=== PATIENT | female | born 1945 | race Caucasian/White ===

== ENCOUNTER 2021-03-19 19:52 | Emergency (ER) | payer BC, MEDICARE ==
--- NOTE | 2021-03-19 21:03 | EDM.PDOC ---
ED HPI GENERAL MEDICAL PROBLEM - General Chief Complaint: Bite:Animal, Insect Stated Complaint: BEE STING Time Seen by Provider: 03/19/21 20:18 Source of Information: Reports: Patient History Limitations: Reports: No Limitations - History of Present Illness INITIAL COMMENTS - FREE TEXT/NARRATIVE: Anitra is a 76-year-old female presenting to the ED for evaluation of a bee sting to her lower lip causing some scratchiness of the throat, hives on the forearms, itch, and nausea. Patient was eating food and there was a bee or yellow jacket on her plate. She did not see it and brought the food to her mouth resulting in her getting stung by the insect. She immediately started having swelling and pain at the lip and started feeling scratchiness in the throat. She denies any shortness of breath or difficulty swallowing. She also started getting some swelling in the hands and feet as well as bilateral forearms. She has having some pruritus of the forearms. She has not taken anything prior to arrival but did put baking soda on her lip which has reduced some of the swelling. She denies a previous difficulty with stings. She is on a number of medications for her heart including Eliquis for chronic atrial fibrillation. - Related Data Allergies Allergy/AdvReac Type Severity Reaction Status Date / Time No Known Allergies Allergy Verified 03/19/21 20:03 Home Meds: Home Meds Apixaban [Eliquis] 5 mg PO BID 03/19/21 [History] Diltiazem [Cardizem CD] 120 mg PO DAILY 03/19/21 [History] Hyalur Ac/Chond Sul/Colg II/AA [Hyaluronic Acid 40 MG] 40 mg PO DAILY 03/19/21 [History] Multivitamin [Multi-Day Vitamins] 1 tab PO DAILY 03/19/21 [History] Propafenone [Rythmol] 150 mg PO Q8H 03/19/21 [History] Rosuvastatin [Crestor] 10 mg PO DAILY 03/19/21 [History] hydrOXYzine HCL [Atarax] 25 mg PO Q6H PRN #10 tab 03/19/21 [Rx] predniSONE [Prednisone] 40 mg PO ASDIRECTED PRN #2 tablet 03/19/21 [Rx] Past Medical History HEENT History: Reports: Impaired Vision Cardiovascular History: Reports: Afib, Other (See Below) Other Cardiovascular History: cardioversion 08/2018 Gastrointestinal History: Reports: None Genitourinary History: Reports: None, Other (See Below) Other Genitourinary History: bladder suspension 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: Musculoskeletal History: Reports: Other (See Below) Other Musculoskeletal History: osteopenia Neurological History: Reports: None Psychiatric History: Reports: None Endocrine/Metabolic History: Reports: None Hematologic History: Reports: None Immunologic History: Reports: None Oncologic (Cancer) History: Reports: Breast, Other (See Below) Other Oncologic History: lumpectomy, chemo and radiation left breast Dermatologic History: Reports: None - Infectious Disease History Infectious Disease History: Reports: None - Past Surgical History Cardiovascular Surgical History: Reports: Other (See Below) GI Surgical History: Reports: None Female Surgical History: Reports: Hysterectomy Musculoskeletal Surgical History: Reports: Other (See Below) Other Musculoskeletal Surgeries/Procedures:: torn achilles Oncologic Surgical History: Reports: Lumpectomy Social & Family History - Tobacco Use Tobacco Use Status *Q: Never Tobacco User Second Hand Smoke Exposure: No - Caffeine Use Caffeine Use: Reports: Coffee - Alcohol Use Days Per Week of Alcohol Use: 5 Number of Drinks Per Day: 1 Total Drinks Per Week: 5 - Recreational Drug Use Recreational Drug Use: No ED ROS GENERAL - Review of Systems Review Of Systems: See Below Constitutional: Reports: No Symptoms HEENT: Reports: Other (Swelling of the lip and scratchiness of the throat) Respiratory: Reports: No Symptoms Cardiovascular: Reports: No Symptoms Endocrine: Reports: No Symptoms GI/Abdominal: Reports: Nausea : Reports: No Symptoms Musculoskeletal: Reports: No Symptoms Skin: Reports: Pruritis (Generalized but mostly on the forearms), Urticaria (Bilateral forearms), Other (Swelling of the hands and feet) Neurological: Reports: No Symptoms Psychiatric: Reports: No Symptoms Hematologic/Lymphatic: Reports: No Symptoms Immunologic: Reports: No Symptoms ED EXAM, ANIMAL BITE - Physical Exam Exam: See Below Exam Limited By: No Limitations General Appearance: Alert, No Apparent Distress Eye Exam: Bilateral Eye: EOMI, PERRL Nose: Normal Inspection Throat/Mouth: Normal Oropharynx, Normal Voice, No Airway Compromise, Other (Swelling of the lower and upper lip. Normal tongue.) Head: Normocephalic, Facial Swelling (Mild swelling around the mouth) Neck: Normal Inspection, Supple, Non-Tender, Full Range of Motion. No: Lymphadenopathy (R), Lymphadenopathy (L) Respiratory/Chest: No Respiratory Distress, Lungs Clear, Normal Breath Sounds Cardiovascular: Normal Peripheral Pulses, Regular Rate, Rhythm, No Murmur GI/Abdominal: Normal Bowel Sounds, Soft, Non-Tender Extremities: Other (Mild swelling of the hands) Neurological: Alert, Oriented, Normal Cognition, No Motor/Sensory Deficits Skin Exam: Other (Urticaria in both forearms. Erythema of the palms.) Course - Vital Signs Last Recorded V/S: Last Vital Signs Temp 36.1 C 03/19/21 20:08 Pulse 71 03/19/21 21:54 Resp 16 03/19/21 20:08 BP 118/77 03/19/21 21:54 Pulse Ox 94 L 03/19/21 19:56 - Orders/Labs/Meds Meds: Medications Discontinued Medications Generic Name Dose Route Start Last Admin Trade Name Freq PRN Reason Stop Dose Admin Diphenhydramine HCl 25 mg 03/19/21 20:47 03/19/21 21:27 Diphenhydramine 25 Mg Cap PO 03/19/21 20:48 25 mg ONETIME ONE Administration Famotidine 20 mg 03/19/21 20:47 03/19/21 21:27 Famotidine 20 Mg Tab PO 03/19/21 20:48 20 mg ONETIME ONE Administration Hydroxyzine HCl 25 mg 03/19/21 20:47 03/19/21 21:38 Hydroxyzine Hcl 25 Mg Tab PO 03/19/21 20:48 25 mg ONETIME ONE Administration Methylprednisolone Sodium Succinate 125 mg 03/19/21 20:47 03/19/21 21:26 Methylprednisolone Sodium Succinate 125 Mg/2 Ml Sdv IM 03/19/21 20:48 125 mg ONETIME ONE Administration - Re-Assessments/Exams Free Text/Narrative Re-Assessment/Exam: 03/19/21 21:05 Anitra is having significant swelling and itching related to this bee sting. We treated her with Solu-Medrol 125 mg IM, diphenhydramine 25 mg p.o., Pepcid 20 mg p.o., and hydroxyzine 25 mg p.o. 03/19/21 21:57 patient has shown improvement after receiving the medications. We did discuss ways to manage to bee stings in the future. She is on several antiarrhythmic medications so I think an EpiPen may have some contraindications. Instead, I recommend that she takes with her prednisone 40 mg, Benadryl 50 mg, and Pepcid 40 mg to be taken at the onset of any symptoms. Today I will also give her a prescription for hydroxyzine that she may fill if she has continued itching. She still has significant swelling of the lower lip which will likely take several days to go down. Departure - Departure Time of Disposition: 22:18 Disposition: Home, Self-Care 01 Clinical Impression: Urticaria Bee sting reaction Qualifiers: Encounter type: initial encounter Injury intent: accidental or unintentional Qualified Code(s): T63.441A - Toxic effect of venom of bees, accidental (unintentional), initial encounter - Discharge Information Referrals: PCP,None [Primary Care Provider] - Forms: ED Department Discharge Care Plan Goals: In the future, I would recommend you carry Pepcid 40 mg (2 tablets), Benadryl 50 mg (2 capsules) and prednisone 40 mg (2 tablets) with you as an emergency allergy kit. This may be much better tolerated and less arrhythmia genic than carrying an EpiPen. Also remember that acetic acid (white vinegar) is a potent treatment for bee stings reducing the swelling and pain associated with the sting. Sepsis Event Note (ED) - Evaluation Sepsis Screening Result: No Definite Risk - Focused Exam Vital Signs: Vital Signs Temp Pulse Resp BP Pulse Ox 03/19/21 21:54 71 118/77 03/19/21 20:08 36.1 C 95 16 102/62 03/19/21 19:56 36.1 C 70 18 102/62 94 L - Problem List & Annotations (1) Bee sting reaction SNOMED Code(s): 436559196, 227231549, 238717971 Code(s): T63.441A - TOXIC EFFECT OF VENOM OF BEES, ACCIDENTAL, INIT Status: Acute Priority: Medium Current Visit: Yes Qualifiers: Encounter type: initial encounter Injury intent: accidental or unintentional Qualified Code(s): T63.441A - Toxic effect of venom of bees, accidental (unintentional), initial encounter (2) Urticaria SNOMED Code(s): 273496149 Code(s): L50.9 - URTICARIA, UNSPECIFIED Status: Acute Priority: Low Current Visit: Yes - Problem List Review Problem List Initiated/Reviewed/Updated: Yes
[2021-03-19] MEDS: methylPREDNISolone Sodium Succinate 125 MG/2 ML SDV IM ONE (21:26)
[2021-03-19] MEDS: diphenhydrAMINE 25 MG Cap PO ONE (21:27)
[2021-03-19] MEDS: Famotidine 20 MG Tab PO ONE (21:27)
[2021-03-19] MEDS: hydrOXYzine HCl 25 MG Tab PO ONE (21:38)
== END 2021-03-19 23:00 | disposition home or self-care (01) ==
LOC: JP.ED 19:52
DX: T63.441A Toxic effect of venom of bees, accidental (unintentional), initial encounter (principal); L50.9 Urticaria, unspecified; I48.91 Unspecified atrial fibrillation; Z79.01 Long term (current) use of anticoagulants; Z79.899 Other long term (current) drug therapy
CPT/HCPCS: 96372; 99282; A9270; J2930

== ENCOUNTER 2023-04-04 12:13 | Emergency (ER) | payer MEDICARE, BC ==
[2023-04-04] MEDS ORDERED: Lidocaine 1% with EPINEPHrine 1:100,000 50 ML MDV INJECT ONE (14:15)
== END 2023-04-04 15:42 | disposition home or self-care (01) ==
LOC: JP.ED 12:13
DX: S91.331A Puncture wound without foreign body, right foot, initial encounter (principal); I48.91 Unspecified atrial fibrillation; Z79.01 Long term (current) use of anticoagulants; Z79.899 Other long term (current) drug therapy; Z87.891 Personal history of nicotine dependence; W22.09XA Striking against other stationary object, initial encounter
CPT/HCPCS: 10120; 99282